=== PATIENT | female | born 1980 | race Caucasian/White ===

== ENCOUNTER 2016-07-28 06:17 | Emergency (ER) | payer BC ==
--- NOTE | ~2016-07-28 | ER ---
PATIENT'S NAME: STEPHEN GARCIA [facility] AGE: 36 Y [address] ROOM: [place] [address] LOCATION: ED ADMIT DATE: 07/28/2016 ER/Outpatient Report DISCHARGE DATE: 07/28/2016 FAMILY PHYSICIAN: Juice Collier MD ATTENDING PHYSICIAN: Cuauhtemoc Doe Time of arrival: 0620 hours. Time of evaluation: 0621 hours. CHIEF COMPLAINT: Right flank pain. HISTORY OF PRESENT ILLNESS: The patient is a 36-year-old female, who presents to the emergency department today with the chief complaint right flank pain. She reports this started about 5:30 this morning. The patient does report she has a history of kidney stones about 7 years ago. This does feel similar to previous kidney stone. She denies any fevers or chills. She denies any constipation or diarrhea. She does report some nausea and vomiting x1. She denies any blood in her stool. She denies any urinary frequency, urgency, or painful urination. She has been able to urinate. She is currently on her menstrual period. She is unsure about blood in her urine. It is a sharp type pain, currently moderate in severity. Nothing makes worse. Nothing makes it better. It does radiate down in the right lower quadrant. PAST MEDICAL HISTORY: Depression, gastroparesis, MS, and kidney stones. PAST SURGICAL HISTORY: x2, cholecystectomy, and lithotripsy. SOCIAL HISTORY: The patient denies any tobacco use. Reports occasional alcohol use. Denies any illicit drug use. ALLERGIES: NO KNOWN DRUG ALLERGIES. MEDICATIONS: Please see list. PRIMARY CARE DOCTOR: Juice Collier M.D. PATIENT'S NAME: STEPHEN GARCIA [facility] AGE: 36 Y [address] ROOM: [place] [address] LOCATION: ED ADMIT DATE: 07/28/2016 ER/Outpatient Report DISCHARGE DATE: 07/28/2016 FAMILY PHYSICIAN: Juice Collier MD ATTENDING PHYSICIAN: Cuauhtemoc Doe REVIEW OF SYSTEMS: All systems are reviewed by myself and negative with the exception of those discussed in HPI and past medical history. PHYSICAL EXAMINATION: VITAL SIGNS: Weight 77 kg. Blood pressure 127/71, pulse 77, respiratory rate 20, temperature 98.2, oxygen saturation 98% on room air. GENERAL: The patient is a 36-year-old female, who appears stated age in moderate acute distress secondary to pain in her right flank. HEENT: Normocephalic and atraumatic. Pupils are equal, round, and reactive to light. Oropharynx is clear. NECK: Supple. There is no nuchal rigidity. CARDIOVASCULAR: Regular rate and rhythm. No murmurs, rubs, or gallops. LUNGS: Clear to auscultation bilaterally. No wheezes, rales, or rhonchi. ABDOMEN: Soft, nontender, and nondistended. No rebound, rigidity, or guarding. No CVA tenderness to palpation. MUSCULOSKELETAL: The patient moves all 4 extremities. Ambulates to room with steady gait. SKIN: Warm and dry. There is no rashes or lesions noted. LABORATORY DATA AND X-RAYS: Labs and x-rays are obtained. CBC is normal. CMP is unremarkable except for potassium 3.2, alkaline phosphatase is normal. AST is 42, ALT is normal. Urinalysis shows 25 leukocyte esterase, 15 protein, 250 blood, rare WBCs, 20- 50 rbc's, rare epithelials, negative bacteria. Urine hCG is negative. CT scan of the abdomen and pelvis without IV contrast is obtained. I have discussed results with the radiologist. It does show a 4 mm proximal right ureterolithiasis with [id number] hydronephrosis. IMPRESSION: 1. Acute 4 mm right ureterolithiasis with [id number] hydronephrosis. 2. Initial visit. EMERGENCY DEPARTMENT COURSE: The patient is brought back to the examination room. Seen and evaluated by myself. IV is established. Laboratory analysis and imaging are obtained as described above. The patient is given an L normal saline IV. She is given 4 mg of Zofran IV as well as 30 mg of Toradol IV. This has resulted in resolution of the patient's symptoms. The patient is re-examined. She does report she feels much better at this time. I have discussed the results of laboratory analysis and imaging with the patient. Her is at the bedside as well. I have discussed recommendations for following up with Dr. Boswell, her urologist next week. I have also recommended follow up with primary care doctor in 2 to 3 days, Dr. Juice Collier. I have written prescriptions for Childress with sedation warning as well as Naprosyn and Zofran and Flomax. I PATIENT'S NAME: STEPHEN GARCIA [facility] AGE: 36 Y [address] ROOM: [place], [place] [address] LOCATION: [facility] ADMIT DATE: 07/28/2016 ER/Outpatient Report DISCHARGE DATE: 07/28/2016 FAMILY PHYSICIAN: Juice Collier MD ATTENDING PHYSICIAN: Cuauhtemoc Doe have discussed return to care instructions including fevers, chills, worsening pain, or any other concerns, return to the emergency department as soon as possible. The patient is agreeable. All her questions are answered. is agreeable without further questions at this time. DISPOSITION: The patient is discharged to home in good condition. DO CINDY BLISS/juan /[id number] d: 07/28/16 1425 t: 08/08/16 0639, OUTPATIENT REPORT
[~2016-07-28 06:17] MED LIST: ADVIL200 MG PO; AVIANE-28 TABL1 EACH PO; IMITREX100 MG PO; NATALIZUMAB IV; PROBIOTIC1 EAC1 PO; PROTONIX40 MG PO; REGLAN5 MG PO; VITAMIN B-122500 MCG PO; VITAMIN D5000 UNIT PO; ZOLOFT50 MG PO; ZYRTEC10 M1 PO
[2016-07-28 06:40] LABS: BASOPHIL % 0.5 %; EOSINOPHIL # 0.2 K/uL (0.0-0.5); EOSINOPHIL % 2.9 %; HEMATOCRIT 36.5 % (33.0-46.0); HEMOGLOBIN 13.1 g/dL (11.0-15.0); IMMATURE GRANULOCYTE # 0.1 K/uL (0.0-0.3); IMMATURE GRANULOCYTE % 0.6 %; LYMPHOCYTE # 4.6 K/uL (0.8-4.0); LYMPHOCYTE % 57.6 %; MCH 32.3 pg (27.0-34.0); MCHC 35.9 gm/dL (32.0-36.5); MCV 90.1 fl (83.0-98.0); MONOCYTE # 0.6 K/uL (0.0-1.0); MONOCYTE % 7.6 %; MPV 9.4 fl (9.4-12.4); NEUTROPHIL # (ANC) 2.4 K/uL (1.8-7.8); NEUTROPHIL % 30.8 %; NRBC % 0.8 /100WBC (0-0.00); PLATELET COUNT 242 K/uL (150-450); RBC 4.05 M/uL (3.50-5.50); WBC 7.9 K/uL (4.0-11.0)
[2016-07-28 06:48] LABS: COLOR URINE YELLOW (YELLOW); TURBIDITY URINE 1+ (CLEAR)
[2016-07-28 06:49] LABS: BILIRUBIN URINE NEGATIVE (NEGATIVE); BLOOD URINE 250 /UL (NEGATIVE); GLUCOSE URINE NEGATIVE (NEGATIVE); KETONE URINE NEGATIVE (NEGATIVE); LEUKOCYTES URINE 25 /UL (NEGATIVE); NITRITE URINE NEGATIVE (NEGATIVE); PROTEIN URINE 15 mg/dL (NEGATIVE); UROBILINOGEN URINE NORMAL (NORMAL)
[2016-07-28 06:51] LABS: EPITHELIAL URINE RARE #/HPF (NEGATIVE); RBC URINE 20-50 #/HPF (NEGATIVE); WBC URINE RARE #/HPF (NEGATIVE)
[2016-07-28 06:52] LABS: BACTERIA URINE NEGATIVE (NEGATIVE)
[2016-07-28 06:57] LABS: ALBUMIN 3.6 gm/dL (3.5-5.0); ALK PHOS 50 IU/L (33-138); ALT 64 IU/L (12-78); ANION GAP 13.2 (10.0-19.0); AST 42 IU/L (10-40); BLOOD UREA NITROGEN 8 mg/dL (6-24); CALCIUM 8.2 mg/dL (8.5-10.5); CHLORIDE 110 mMol/L (96-110); CO2 23 mMol/L (22-32); CREATININE 0.8 mg/dL (0.5-1.1); ESTIMATED GFR (MDRD EQUATION) > 60; POTASSIUM 3.2 mMol/L (3.7-5.1); SODIUM 143 mMol/L (135-145); TOTAL BILIRUBIN 0.4 mg/dL (0.0-1.5); TOTAL PROTEIN 6.7 g/dL (6.0-8.4)
== END 2016-07-28 07:51 | disposition disaster alternative care site (69) ==
LOC: GMED 06:17
PROVIDERS: Emergency Medicine
DX: N13.2 Hydronephrosis with renal and ureteral calculous obstruction (principal); K31.84 Gastroparesis; G35 Multiple sclerosis; F32.9 Major depressive disorder, single episode, unspecified; Z90.49 Acquired absence of other specified parts of digestive tract; Z79.899 Other long term (current) drug therapy; Z87.442 Personal history of urinary calculi
CPT/HCPCS: J1885; J2405; J7030

== ENCOUNTER → 2016-08-28 | Outpatient (CLI) | payer BC | END | disposition disaster alternative care site (69) | LOC: GRAD 12:19 | DX: G35 Multiple sclerosis (principal) ==